=== PATIENT | male | born 1945 | race Caucasian/White ===

== ENCOUNTER 2016-11-01 18:19 | Emergency (ER) | payer MEDICARE, OTHER ==
[2016-11-01] MEDS ORDERED: oxyCODONE HCL/ACETAMINOPHEN 1 TAB TABLET PO ONE ×2 (18:50→19:53)
--- NOTE | 2016-11-01 19:02 | ERNOTE ---
Lower Extremity HPI - Narrative Date of Service: 11/01/16 - General Lower Extremities Pain: hip: right - clicking sound or replaced hip Time Seen by Provider: 11/01/16 18:43 Source: patient Exam Limitations: no limitations - Immun/Allergies/Home Medications Immunizations: IMMUNIZATION HX Immunizations Up to Date Yes History of Influenza Vaccine Yes Hx Pneumococcal Vaccination No Allergies/Adverse Reactions: Allergies Allergy/AdvReac Type Severity Reaction Status Date / Time No Known Allergies Allergy Unverified 11/01/16 18:26 Home Medications: HOME MEDICATIONS Aspirin [Aspirin Enteric Coated] 325 mg PO DAILY 11/01/16 [Last Taken Unknown] metFORMIN HCL [Glucophage Xr] 500 mg PO DAILY 11/01/16 [Last Taken Unknown] oxyCODONE HCL/ACETAMINOPHEN [Percocet 7.5-325 mg Tablet] 1 tab PO QID PRN #20 tablet 11/01/16 [Last Taken Unknown] - History of Present Illness Narrative: States right hip pain has been going on since May but has worsened over past week. Has not been able to sleep and now is hearing a clicking sound when moving the hip. Date (Duration): 10/25/16 Occurred: last week Method of Injury: Reports: other - Denies any injury or trauma. Hip replaced 12 yrs ago. Modifying Factors - (Improves): Reports: pain medication, rest Modifying Factors - (Worsens): Reports: movement Associated Symptoms: Reports: popping sensation Other Injuries: Reports: none Subsequent Symptoms: Reports: other - Tingling down into right lower extremity past the knee Prior Treament: Reports: other - Is here in [place] on a mission trip. 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 after walking a long distance in May began have some pain in the hip that has slowly worsened. The past week pain has become severe to the point he cannot sleep. Hears a clicking sound when walking. Periodically he will get tingling down into the right foot. Does have some chronic back pain due to a disc unknown location. - Review of Systems Constitutional: Present: no symptoms reported EYE: Present: no symptoms reported ENT: Present: no symptoms reported Respiratory: Present: no symptoms reported Cardiology: Present: no symptoms reported Gastrointestinal/Abdominal: Present: no symptoms reported Genitourinary: Present: no symptoms reported Musculoskeletal: Present: other - Right hip pain fairly constant. Periodically radiating into right lower leg. Skin: Present: no symptoms reported Neurological: Present: tingling - periodic into RLE. Chronic back pain Endocrine: Present: no symptoms reported Hematologic/Lymphatic: Present: no symptoms reported - Patient's Past Medical History Patient History - Medical: Diabetes Type 2 Patient History - Cardiac/Respiratory: Atrial Fibrillation Patient History - Cancer: No Hx of Cancer Patient History - Surgical Procedures: Total Hip Replacement, Other, Hernia Repair Patient History - Other: None - Social History Living Situations: home Psych History: No pertinent hx Smoking Status: Never smoker Alcohol Use: none Drug Use: none - Immunizations Immunizations Up to Date: Yes Hx Pneumococcal Vaccination: No History of Influenza Vaccine: Yes Physical Exam - Physical Exam General Appearance: Present: wd/wn, alert, moderate distress Head Exam: Present: normal inspection Eye Exam: EOMI: bilateral Neck: Present: supple, full range of motion Respiratory: Present: no respiratory distress, no accessory muscle use Peripheral Pulses: N=norm/S=strong/W=weak/B=bound/A=absent: Dorsalis-pedis (R): Normal Back Exam: Present: normal inspection, normal range of motion, no vertebral tenderness Extremity Exam: Present: decreased range of motion - Due to discomfort near the greater trochantor. No abnormal bony structure. Distal sensation intact. , other - No calf tenderness. Has active but decreased ROM of right hip. No sciatic discomfort. Neurological Exam: Present: alert, oriented, normal mood/affect, no motor/ sensory deficits Skin Exam: Present: normal color, warm/dry ED Progress - Date and Time Seen: Date and Time: 11/01/16 19:54 States he has some improvement but not completely resolved. - Vital Signs Patient's Vital Signs:: I have reviewed the patient's vital signs. Vital Signs: Vital Signs 11/01/16 18:20 Temperature 36.3 C L Pulse Rate 72 Respiratory 18 Rate Blood Pressure 155/82 O2 Sat by Pulse 97 Oximetry - X-Ray X-Ray #1 Interpretation: Reviewed by me - No obvious deformity or fracture noted. - Progress/Reassessment Chief Complaint: Lower Extremity Pain/ Injury Progress:: Improved Departure Clinical Impression: Hip pain, right - Departure Disposition: Home Follow Up Needed Condition: Stable Additional Instructions: No acute fracture noted. However if radiologist disagrees we will let you know. Take the percocet 1 tabs every 6 hrs. May make you drowsy so take with caution. Follow up with ortho as planned on November 10. Prescriptions: oxyCODONE HCL/ACETAMINOPHEN [Percocet 7.5-325 mg Tablet] 1 tab PO QID PRN #20 tablet PRN Reason: Pain
[2016-11-01] MEDS ORDERED: oxyCODONE HCL/ACETAMINOPHEN 1 TAB TABLET ONE ×2 (19:10→19:58)
[2016-11-01 23:21] VITALS: BP 163/82
== END 2016-11-01 20:20 | disposition home or self-care (01) ==
LOC: ER 18:19
DX: M25.551 Pain in right hip (principal); E11.9 Type 2 diabetes mellitus without complications